=== PATIENT | male | born 1995 | race Hispanic/Latino ===

== ENCOUNTER 2017-03-09 17:37 | Emergency (ER) | payer BC ==
[2017-03-09 17:45] VITALS: BP 122/72; PULSE 85; RESP 20; TEMP 98; O2SAT 99
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
== END 2017-03-09 18:37 | disposition home or self-care (01) ==
LOC: H.ER 17:37
DX: S50.11XA Contusion of right forearm, initial encounter (principal); S53.401A Unspecified sprain of right elbow, initial encounter; V03.10XA Pedestrian on foot injured in collision with car, pick-up truck or van in traffic accident, initial encounter; Y92.410 Unspecified street and highway as the place of occurrence of the external cause